=== PATIENT | female | born 2000 | race Two or more races ===

== ENCOUNTER 2024-03-25 18:27 | Emergency (ER) | payer OTHER ==
[~2024-03-25] VITALS: Ht 160 cm; Wt 54.4 kg
[2024-03-25] MEDS ORDERED: ACET-2605 PO (19:14)
[2024-03-25] MEDS ORDERED: IBUP-1955 PO (19:14)
[2024-03-25 19:23] VITALS: BP 134/88; TEMP 98.2; O2SAT 99
== END 2024-03-25 19:23 | disposition home or self-care (01) ==
LOC: ER 18:39
DX: N64.4 Mastodynia (principal)